=== PATIENT | male | born 1965 | race Hispanic/Latino ===

== ENCOUNTER 2018-01-28 16:04 | Emergency (ER) | payer BC ==
[~2018-01-28] VITALS: Ht 177.8 cm; Wt 158.0 kg
== END 2018-01-28 18:46 | disposition left against medical advice (07) ==
LOC: FSED 16:04
DX: R55 Syncope and collapse (principal); R42 Dizziness and giddiness; R51 Headache; R05 Cough; J20.8 Acute bronchitis due to other specified organisms; I45.10 Unspecified right bundle-branch block
CPT/HCPCS: 70450; 71045; 80048; 81003; 84484; 85025; 85379; 93005; 99284